=== PATIENT | male | born 1975 | race Caucasian/White ===

== ENCOUNTER → 2021-10-27 01:54 | Outpatient (CLI) | payer BC, SELFPAY ==
[2021-10-27 19:52] LABS: SARS-CoV-2 RNA PCR Positive
== END ==
DX: U07.1 COVID-19 (principal)
CPT/HCPCS: C9803; U0003; U0005

== ENCOUNTER 2022-08-03 11:29 | Outpatient (CLI) | payer BC, SELFPAY ==
--- NOTE | ~2022-08-03 | XR_ITS ---
XR humerus RT DATE: 08/03/2022 11:52 INDICATION: Swelling. Mass, lump, proximal posterior femoral area TECHNIQUE: AP and lateral views COMPARISON: None FINDINGS: No fracture or dislocation, periosteal reaction or bone destruction of the right humerus is detected. Normal alignment at the acromioclavicular, glenohumeral and elbow joints. IMPRESSION: Negative Reviewed, dictated and finalized at location A. IMPRESSION: Negative
== END 2022-08-03 11:30 | disposition home or self-care (01) ==
LOC: ANHIMG 11:36
DX: R22.31 Localized swelling, mass and lump, right upper limb (principal)
CPT/HCPCS: 73060

== ENCOUNTER 2022-09-29 07:39 | Outpatient (CLI) | payer BC, SELFPAY ==
--- NOTE | ~2022-09-29 | MR_ITS ---
EXAMINATION: MR humerus RT wo/w con DATE: 09/29/2022 09:19 INDICATION: Mass at the posterior mid right humerus with intermittent pain TECHNIQUE: Magnetic resonance imaging (MRI) of the right upper arm/humerus was performed without intr avenous contrast. A marker was placed over the mass. Sequences included axial, sagittal and coronal T1-weighted FSE and fluid sensitive FSE STIR, axial T1-weighted FS FSE and post contrast axial, sagit samantha and coronal T1-weighted FS FSE. COMPARISON: None. FINDINGS: There is a 5 mm T2 hyperintense enhancing lesion in the superficial subdermal tissues underlying the marker indicating the lesion of concern at the posterior aspect of the proximal right upper arm. Ther e appear to be tiny contrast enhanced feeding and draining vessels extending to the lesion. No other abnormal masses, fluid collections or other abnormal enhancing lesions identified. Mild supraspinatus tendinopathy with small articular sided tear along the superior facet footplate of the supraspinatus tendon which measures approximate 6 mm AP and involves approximately two thirds of the tendon thickn ess. There is mild cystic change along the greater tuberosity likely related to chronic rotator cuff disease. Bone marrow signal is otherwise normal. IMPRESSION: 1. Nonspecific 5 mm T2 hyperintense and enhancing lesion in the superficial subdermal tissues at the posterior aspect of the proximal right upper arm. Differential would include a vascular malformation/ focally dilated subcutaneous vessel or neoplasm which could be other benign or malignant. 2. Incidental mild supraspinatus tendinopathy with small severe partial thickness articular sided tea r at its superior facet insertion. Reviewed, dictated and finalized at location A. OSITY TESTER IMPRESSION: 1. Nonspecific 5 mm T2 hyperintense and enhancing lesion in the superficial sub dermal tissues at the posterior aspect of the proximal right upper arm. Differe ntial would include a vascular malformation/focally dilated subcutaneous vessel or neoplasm which could be other benign or malignant. 2. Incidental mild supraspinatus tendinopathy with small severe partial thickne ss articular sided tear at its superior facet insertion.
== END 2022-09-29 07:40 | disposition home or self-care (01) ==
DX: R22.31 Localized swelling, mass and lump, right upper limb (principal)
CPT/HCPCS: 73220; A9577

== ENCOUNTER 2022-10-06 14:29 | Outpatient (CLI) | payer BC, SELFPAY ==
--- NOTE | ~2022-10-06 | MR_ITS ---
EXAMINATION: MR knee RT wo con DATE: 10/06/2022 15:44 INDICATION: TECHNIQUE: Magnetic resonance imaging (MRI) of the knee was performed without intravenous contrast. S equences included axial PD-weighted FS FSE, coronal PD-weighted FSE and PD-weighted FS FSE, sagittal PD-weighted FSE, and sagittal T2-weighted FS FSE. COMPARISON: X-ray right knee 09/22/2022, images only. FINDINGS: Medial compartment: Radial tear of the apex of the medial aspect of the posterior horn, with a small medially directed fl ap of meniscal tissue. Undersurface fraying at the junction of the body and horn of the medial menisc us. Moderate diffuse cartilage thinning without focal defect. Mild osteophytosis. Lateral compartment: Intact meniscus. Moderate diffuse cartilage thinning. Mild osteophytosis. Patellofemoral compartment: Minimal partial-thickness fissuring along the median ridge. Intact retinacula. Ligaments and tendons: Abnormal increased signal within the ACL. Mild thickening with superficial and deep T2 hyperintense s ignal along the MCL. The PCL and LCL are intact. Longitudinally oriented abnormal signal within the p osterior aspect of the patellar tendon. Remaining flexor and extensor tendons are intact. Fluid: Small volume joint effusion. Osseous/other: No suspicious focal or diffuse marrow signal. IMPRESSION: 1. Apical tear of the posterior horn, medial meniscus, with a small displaced flap. 2. Partial ACL tear. 3. Initial MCL tear. 4. Patellar tendinopathy. Reviewed, dictated and finalized at location K. ROLLING MACHINE OPERATOR IMPRESSION: 1. Apical tear of the posterior horn, medial meniscus, with a small displaced f lap. 2. Partial ACL tear. 3. Initial MCL tear. 4. Patellar tendinopathy.
== END 2022-10-06 14:30 | disposition home or self-care (01) ==
PROVIDERS: Visit Provider Orthopaedic Surgery
DX: S83.511A Sprain of anterior cruciate ligament of right knee, initial encounter (principal); S83.411A Sprain of medial collateral ligament of right knee, initial encounter; X58.XXXA Exposure to other specified factors, initial encounter
CPT/HCPCS: 73721

== ENCOUNTER 2022-10-29 09:02 | Outpatient (CLI) | payer BC, SELFPAY ==
--- NOTE | 2022-10-29 09:10 | ECG_ITS ---
Measurements Intervals Jesse Rate: 77 P: -8 ME: 141 QRS: -17 QRSD: 106 T: -14 QT: 336 QTc: 380 Interpretive Statements SINUS RHYTHM VOLTAGE CRITERIA FOR LVH BORDERLINE R WAVE PROGRESSION, ANTERIOR LEADS INFERIOR INFARCT, AGE INDETERMINATE BASELINE ARTIFACT- I, III, AVL ABNORMAL ECG NO PREVIOUS ECG AVAILABLE FOR COMPARISON Electronically Signed On 10-29-2022 10:10:05 GARMENT STEAMER by Jose Angel Argueta D.O.
[2022-10-29 10:09] LABS: Anion Gap 4 mmol/L (8-16); Blood Urea Nitrogen 16 mg/dL (9-20); Calcium 8.6 mg/dL (8.4-10.2); Carbon Dioxide 28 mmol/L (22-30); Chloride 103 mmol/L (98-107); Estimated Glomerular Filt Rate > 60; Glucose 208 mg/dL (65-110); Potassium 4.1 mmol/L (3.4-5.0); Sodium 135 mmol/L (137-145)
== END 2022-10-29 09:03 | disposition home or self-care (01) ==
PROVIDERS: Anesthesiology; Visit Provider Orthopaedic Surgery
DX: E11.9 Type 2 diabetes mellitus without complications (principal); Z01.818 Encounter for other preprocedural examination; R94.31 Abnormal electrocardiogram [ECG] [EKG]
CPT/HCPCS: 36415; 80048; 93005

== ENCOUNTER 2022-11-02 00:49 | Day surgery (SDC) | payer BC, SELFPAY ==
[2022-10-25 10:51] VITALS: BMI 28.8
--- NOTE | 2022-10-25 10:55 | PC.NURSE ---
Report to the Outpatient Waiting Room, entrance under the green pavilion located off [facility], at time 11:30 on date 11/02/22. Planned Procedure Time: 1:30. Time changes happen often and if your time is changed the preop area will call you the afternoon before. - You and your visitor will be asked to self-screen and do not enter if you have any COVID symptoms. - Only one visitor is requested with a max of two and NO children visitors are allowed at this time. - The patient visitor may be requested to leave or wait in car when not with patient due to distancing restrictions. - A mask is optional within the hospital. Patients may have clear liquids (water, carbonated beverages, clear teas, apple juice) until 3 hours prior to surgery (10:30) with a maximum of 20 ounces. - No food from midnight until time of surgery Take the following medications with a SIP of water the morning of surgery: BUPROPION Medications to discontinue per physician: NAPROXEN Date to take last dose: 10/25/22 Please no make-up, nail south african, hairspray, perfume, deodorant, or body powder the day of surgery. No jewelry (including any body piercings) or valuables the day of surgery, leave them at home. Please take a shower or bath the night before, or the morning of, surgery with an antibacterial soap. Wear comfortable, loose fitting clothing. - Jewelry must be removed prior to entering the operating room. Rings and piercings that are not removed may be cut off. - The hospital will not accept responsibility for valuables. - Please leave all valuables, including medications, at home the day of surgery. If you are going home after surgery, a licensed car pick up driver must drive you home. - NO public transportation without another adult if you receive anesthesia. - We recommend that an adult stay with you for 24 hours following discharge. - We also recommend that you do not drive, make important decision, drink alcoholic beverages, or take any drugs that were not prescribed by your health care provider for at least 24 hours after your discharge time. Follow any additional instructions given to you from your surgeon. If you or anyone in your household have experienced Covid symptoms in the past week, please notify your surgeon or the nurse liaison at the phone number below for possible testing. Telephone instructions given to PT - ANTIONE DOSHI and asked if any additional questions and then verbalized understanding. Patient advised to call surgeon office or pre surgery nurse liaison [phone] if any additional questions.
[2022-11-02] VITALS (7 sets, daily range): BP systolic 104–144; BP diastolic 63–91; PULSE 62–75; RESP 15–20; TEMP 36.1–36.4; O2SAT 97–100
--- NOTE | 2022-11-02 08:21 | WPDANESEPPF ---
Anes - Initial Pre Proc Eval Procedure: Operation Date: 11/02/22 13:30 Proposed Procedures p Right Knee Arthroscopy, Partial Medial Meniscectomy - Otf Curtis MD Date/Time: 11/02/22 08:21 Surgeon: Otf Curtis MD Pre Op Diagnosis: right medial meniscus tear Patient Data Age: 47 Gender: M Height: 1.85 m Weight: 98.9 kg Allergies Allergy/AdvReac Type Severity Reaction Status Date / Time No Known Allergies Allergy Verified 11/02/22 11:37 Home Medications Medication Instructions Recorded Confirmed Type glimepiride 2 mg tablet 2 mg PO DAILY 08/10/19 11/02/22 History insulin glargine 100 unit/mL 15 unit subcut HS 08/10/19 11/02/22 History subcutaneous solution (Lantus U-100 Insulin) liraglutide 0.6 mg/0.1 mL (18 mg/3 1.8 mg subcut WEEKLY 08/10/19 11/02/22 History mL) subcutaneous pen injector (Victoza 3-Hitesh) lisinopril 10 mg tablet 10 mg PO DAILY 08/10/19 11/02/22 History metformin 1,000 mg tablet 1,000 mg PO BID 08/10/19 11/02/22 History atorvastatin 10 mg tablet 10 mg PO DAILY 11/09/21 11/02/22 History bupropion HCl 150 mg 24 hr tablet, 150 mg PO QAM 11/09/21 11/02/22 History extended release naproxen 500 mg tablet 500 mg PO BID #120 tabs 11/09/21 11/02/22 Rx Patient hx anesthesia problems: none Family hx anesthesia problems: none Results Review: All pre-operative results and documents have been reviewed as part of the pre-operative evaluation. [facility] Past Medical History Medical History (Updated 11/02/22 @ 08:22 by Alban Kearns MD) Anxiety Diabetes HTN (hypertension) Hypercholesterolemia JARET on CPAP Overweight (BMI 25.0-29.9) Surgical History Surgical History H/O vasectomy Family History Family History Father Diabetes mellitus Social History Social History Smoking status: Never smoker Alcohol intake: current Alcohol use details: VERY RARE Substance use: never Substance use type: does not use Lack of Transportation: No Lack of Food: Never True Current Housing: I Have Housing Concerned About Future Housing: No Difficulty Paying Gas/Electric Bills: No Difficulty Paying for Meds: No Currently Unemployed: No Education: Associate Degree Difficulty w/ Childcare or Family Care: No Living arrangements: with family Gender identity (if verbalized by the patient): Male Spiritual care concerns: No Anes - Eval Final PreProcedure Day of Procedure 11/02/22 08:21 Patient weight: overweight Heart: regular rate and rhythm Lungs: clear to auscultation and normal air movement Airway: Mallampati scale class II Neurological: alert and oriented Last oral intake: >/= 8 hours ASA classification: III Emergent: no Anesthetic plan: proceed Anesthesia type and monitoring: general LMA Results Review: All pre-operative results and documents have been reviewed as part of the pre-operative evaluation. Informed Consent: The patient's anesthetic plan and its attendant risks and benefits were discussed with the patient/family/POA. Questions were solicited and answers provided to the satisfaction of the patient/family/POA.
[2022-11-02] MEDS: ACETAMINOPHEN 500 MG TABLET 1000 MG PO (11:44)
[2022-11-02] MEDS: LACTATED RINGERS 1,000 ML 30 ML IV CONT (12:15)
[2022-11-02] MEDS: KETOROLAC 15 MG/ML VIAL (*BKC) IV PUSH (12:16)
[2022-11-02 12:21] LABS: Glucose Point of Care 108 mg/dl (65-105)
--- NOTE | 2022-11-02 13:45 | WPDHPUPDATE1 ---
History and Physical Update Update Date/Time: 11/02/22 13:45 History and Physical has been reviewed, including an updated exam of the patient. There are NO changes in the patient's condition. Risks, benefits, and alternatives have been discussed and questions answered. Patient agrees to proceed with procedure.
[2022-11-02] MEDS: ceFAZolin 2 GM/D5W 50 ML 2 GM/50 ML BAG IVPB (13:50)
[2022-11-02] MEDS: BUPIVACAINE/EPINEPHRINE 0.5% 10 ML VIAL 30 ML INFILTRATE (14:17)
[2022-11-02 15:22] LABS: Glucose Point of Care 99 mg/dl (65-105)
--- NOTE | 2022-11-02 16:32 | P.OP_ITS ---
Procedure Note - Detailed Date of Procedure 11/02/22 Pre-op Diagnosis Right knee medial meniscus tear Post-op Diagnosis Same Procedure Performed Arthroscopic partial medial meniscectomy, right knee. Surgeon Otf Curtis MD Anesthesia General Findings Large parrot-beak type tear with displaced flap from the posterior meniscus. Consistent with the MRI. Partial ACL disruption noted on the MRI not readily evident clinically. The ACL functioned normally with Ephraim's test under direct vision. Perhaps some subtle appearance of previous injury. Medial femur chondromalacia grade 1, medial tibia grade 1. Lateral femur chondromalacia grade 0, lateral tibia grade 0. Patellar grade 0, trochlea grade 0. Description of Procedure The patient was identified and the surgical site confirmed and signed in the preoperative holding area. Antibiotics were started per protocol. She was brought to the operative room and transferred to the OR table. A general anesthetic was administered. Supine position with the operative lower extremity position in the leg estrada after placement of a well padded tourniquet. The leg support was lowered and the contralateral limb was supported with a soft bolster. The knee was prepped and draped in the usual sterile fashion. A time- out was performed. The portal sites were marked and infiltrated with 0.5% Marcaine 20 mL. The limb was exsanguinated and the tourniquet inflated to 300 mL Hg. Standard inferolateral and inferomedial portals were established. Inflow was obtained with the saline pump. The camera was introduced. Diagnostic inspection of the joint was accomplished. The meniscus was debrided with the arthroscopic shaver and punches until stable. The arthroscopic instruments were removed. The tourniquet released and wounds closed with subcutaneous 4-0 Monocryl absorbable suture. Steri strips and a sterile dressing were applied. A light elastic wrap was placed. The patient was extubated and brought to the recovery room in stable condition. Estimated Blood Loss -5.0 Drains No Complications No immediate complications Condition Stable Disposition PACU [facility] Billing Surgery - Charge Forward: Surgery Billing
== END 2022-11-02 16:19 | disposition home or self-care (01) ==
PROVIDERS: Visit Provider Orthopaedic Surgery
PROC: (CPT 29870; principal; 2022-11-02 13:30)
DX: S83.241A Other tear of medial meniscus, current injury, right knee, initial encounter (principal); X50.0XXA Overexertion from strenuous movement or load, initial encounter; I10 Essential (primary) hypertension; E11.9 Type 2 diabetes mellitus without complications; E78.00 Pure hypercholesterolemia, unspecified; G47.33 Obstructive sleep apnea (adult) (pediatric); F41.9 Anxiety disorder, unspecified; Z79.84 Long term (current) use of oral hypoglycemic drugs; Z79.4 Long term (current) use of insulin
CPT/HCPCS: 29881; 82948; A9270; J0690; J1100; J1885; J2250; J2405; J2704; J3010; J7120

== ENCOUNTER 2023-12-06 20:07 | Emergency (ER) | payer BC, SELFPAY ==
--- NOTE | ~2023-12-06 | CT_ITS ---
EXAMINATION: CT abdomen pelvis wo con DATE: 12/06/2023 23:03 INDICATION: R flank pain TECHNIQUE: Computed tomography (CT) of the abdomen and pelvis was performed without intravenous contr ast. Automated exposure control and iterative reconstruction technique were employed. The dose-length product was 1028.01 mGy-cm. COMPARISON: None. FINDINGS: Lower thorax: Coronary artery calcifications. Multiple sub-6 mm pulmonary nodules. Liver: Normal. Biliary/Gallbladder: Gallbladder is normal. No bile duct dilation. Pancreas: No mass or duct dilation. Spleen: Subcentimeter cyst or hemangioma. Adrenals:No mass. Kidneys: No suspicious mass, obstructing stone, or hydronephrosis. Punctate bilateral lower pole calc ifications. GI tract: No small or large bowel dilation. Normal appendix. Diverticulosis without diverticulitis. Mesentery/Peritoneum: No ascites, mass, or free air. Retroperitoneum: No mass. Atherosclerotic abdominal aortic and/or arterial calcifications. Pelvis: Pelvic organs are within normal limits. Peritoneal loose body. Soft Tissues: Small fat-containing uncomplicated umbilical and bilateral inguinal hernias. Bones: No acute osseous finding. IMPRESSION: No acute abdominopelvic process detected. Multiple subcentimeter pulmonary nodules, which require no additional evaluation unless the patient i s at high risk, in which case consider an optional low-dose noncontrast CT of the chest in 12 months. Reviewed, dictated and finalized at location K. R MIXER IMPRESSION: No acute abdominopelvic process detected. Multiple subcentimeter pulmonary nodules, which require no additional evaluatio n unless the patient is at high risk, in which case consider an optional low-do se noncontrast CT of the chest in 12 months.
[2023-12-06 20:31] VITALS: BP 137/89; PULSE 76; RESP 20; TEMP 36.4; O2SAT 99
[2023-12-06 20:44] LABS: Appearance Urine Clear (Clear); Bilirubin Urine Negative (Negative); Blood Urine Negative (Negative); Color Urine Yellow (Yellow); Glucose Urine UA 1+ mg/dL (Negative); Ketones Urine Trace mg/dL (Negative); Leukocyte Esterase Ur Negative LEU/UL (Negative); Nitrate Urine Negative (Negative); Protein Urine Negative (Negative); Specific Grav Ur 1.027 (1.001-1.035); pH Urine 5.5 (5.0-9.0)
[2023-12-06 20:53] LABS: Add Urine Microscopic? NO
--- NOTE | 2023-12-06 22:53 | ED.GENADULT ---
HPI - General Adult General Chief complaint: Urogenital-Male Stated complaint: testicular pain, R flank pain Time Seen by Provider: 12/06/23 21:52 Source: patient Mode of arrival: ambulatory Limitations: no limitations History of Present Illness HPI narrative: This is a 48-year-old male with PMH of T2 dm, HTN, JARET who presents to the ED with chief complaint of right flank pain x1 day. Reports earlier this week he was having intermittent testicular pain but states this has largely resolved. Reports the pain is primarily in the right flank and radiates somewhat into the upper abdomen as well. Endorses nausea and 1 episode of vomiting today. Denies urinary symptoms, scrotal swelling or groin pain. Denies fevers, chills, injury or trauma. Related Data Home Medications Medication Instructions Recorded Confirmed glimepiride 2 mg tablet 2 mg PO DAILY 08/10/19 11/17/22 insulin glargine 100 unit/mL 15 unit subcut HS 08/10/19 11/17/22 subcutaneous solution (Lantus U-100 Insulin) liraglutide 0.6 mg/0.1 mL (18 mg/3 1.8 mg subcut WEEKLY 08/10/19 11/17/22 mL) subcutaneous pen injector (Victoza 3-Hitesh) lisinopril 10 mg tablet 10 mg PO DAILY 08/10/19 11/17/22 metformin 1,000 mg tablet 1,000 mg PO BID 08/10/19 11/17/22 atorvastatin 10 mg tablet 10 mg PO DAILY 11/09/21 11/17/22 bupropion HCl 150 mg 24 hr tablet, 150 mg PO QAM 11/09/21 11/17/22 extended release Allergies Allergy/AdvReac Type Severity Reaction Status Date / Time povidone-iodine AdvReac Rash Verified 12/06/23 22:53 [From Betadine] Review of Systems Review of Systems: All systems as dictated in HPI [facility] Past Medical History Medical History Anxiety Diabetes HTN (hypertension) Hypercholesterolemia JARET on CPAP Overweight (BMI 25.0-29.9) Surgical History Surgical History H/O vasectomy History of meniscectomy of right knee medial Family History Family History Father Diabetes mellitus Social History Social History Smoking status: Never smoker Alcohol intake: current Alcohol use details: VERY RARE Substance use: never Substance use type: does not use Lack of Transportation: No Lack of Food: Never True Current Housing: I Have Housing Concerned About Future Housing: No Difficulty Paying Gas/Electric Bills: No Difficulty Paying for Meds: No Currently Unemployed: No Education: Associate Degree Difficulty w/ Childcare or Family Care: No Living arrangements: with family Gender identity (if verbalized by the patient): Male Spiritual care concerns: No Exam Narrative: GENERAL: Well-appearing, well-nourished, and in no acute distress. HEAD: Normocephalic, atraumatic. EYES: PERRLA and EOMI. ENT: Nares clear, no rhinorrhea or epistaxis. Mucous membranes moist. Oropharynx without tonsillar hypertrophy exudate or other lesions. NECK: Supple. No adenopathy or masses. CHEST: No respiratory distress. Clear to auscultation. No wheezes rales or rhonchi HEART: Regular rate and rhythm. No murmur heard. Normal peripheral pulses. ABDOMEN: Negative left flank tenderness. Mild right flank tenderness. soft, nontender, nondistended, normal active bowel sounds. MSK: Normal range of motion. No edema. SKIN: Warm, dry, no rash. NEURO: Alert and oriented x3. No focal deficits. PSYCH: Normal mood and affect. Course Course Emergency Course: Re-evaluation 2329: He feeling much better with pain meds and nausea meds. Vital Signs Vital signs: Vital Signs Temperature 97.5 F L 12/06/23 20:31 Pulse Rate 76 12/06/23 20:31 Respiratory Rate 20 12/06/23 20:31 Blood Pressure 137/89 12/06/23 20:31 Pulse Oximetry 99 12/06/23 20:31 Temperature 97.5 F L 12/06/23 2
[2023-12-06 22:54] VITALS: BP 128/84; PULSE 86; RESP 15; O2SAT 97
--- NOTE | 2023-12-06 22:59 | PC.NURSE ---
Pt to CT at this time.
[2023-12-06 23:03] LABS: Basophils Percent Auto 0.5 % (0.2-1.2); Eosinophils Absolute Auto 0.1 K/mm3 (0-0.3); Eosinophils Percent Auto 1.3 % (0-4.4); Hematocrit 46.7 % (42.0-52.0); Hemoglobin 15.7 g/dL (14.0-18.0); Immature Granulocyte Absolute 0.02 K/mm3 (0.00-0.031); Immature Granulocyte Percent A 0.3 % (0-0.5); Lymphocytes Absolute Auto 2.75 K/mm3 (0.9-3.2); Lymphocytes Percent Auto 36.5 % (18.3-44.2); Mean Corpuscular HGB Conc 33.6 g/dl (32-36); Mean Corpuscular Hemoglobin 29.9 pg (26-34); Mean Platelet Volume 9.7 fl (7.4-10.4); Monocytes Absolute Auto 0.8 K/mm3 (0.1-0.6); Monocytes Percent Auto 10.1 % (2.6-8.5); Neutrophils Absolute Auto 3.9 K/mm3 (1.3-6.7); Neutrophils Percent Auto 51.3 % (45.5-73.1); Platelet Count Result 248 k/mm3 (150-375); Red Blood Count 5.25 M/mm3 (4.6-6.20); Red Cell Distribution Width 13.1 % (11.5-14.5); White Blood Count 7.5 K/mm3 (4.5-10.0)
[2023-12-06 23:13] LABS: Alanine Aminotransferase 47 U/L (6-50); Albumin Level 4.6 g/dL (3.5-5.1); Alkaline Phosphatase 66 U/L (38-126); Anion Gap 6 mmol/L (8-16); Aspartate Amino Transferase 31 U/L (17-59); Bilirubin,Total 0.8 mg/dL (0.2-1.3); Blood Urea Nitrogen 25 mg/dL (9-20); Carbon Dioxide 27 mmol/L (22-30); Chloride 105 mmol/L (98-107); Estimated CRCL calculation 98 ml/min; Estimated Glomerular Filt Rate > 60; Glucose 152 mg/dL (65-110); Lipase 948 U/L (23-300); Potassium 3.9 mmol/L (3.4-5.0); Sodium 138 mmol/L (137-145)
[2023-12-06] MEDS: ONDANSETRON INJ 4 MG/2 ML VIAL IV PUSH (23:13)
[2023-12-06] MEDS: HYDROmorphone HCL INJ (*CRX) 1 MG/ML SYR 0.5 MG IV PUSH (23:14)
[2023-12-06] MEDS: SODIUM CHLORIDE 0.9% IV 1,000 ML 999 ML IV CONT (23:18)
--- NOTE | 2023-12-07 00:07 | PC.NURSE ---
Pt ready for dc. Awaiting fluids to infuse before discharge. Pt resting comfortably in bed rn.
[2023-12-07 00:51] VITALS: BP 124/81; PULSE 69; RESP 17; O2SAT 95
== END 2023-12-07 00:54 | disposition home or self-care (01) ==
PROVIDERS: Emergency Medicine; Emergency Provider Physician Assistant
DX: K85.90 Acute pancreatitis without necrosis or infection, unspecified (principal); E11.9 Type 2 diabetes mellitus without complications; I10 Essential (primary) hypertension; Z79.4 Long term (current) use of insulin
CPT/HCPCS: 36415; 74176; 80053; 81003; 83690; 85025; 96361; 96374; 96375; 99284; J1170; J2405; J7030

== ENCOUNTER 2023-12-26 08:36 | Outpatient (CLI) | payer BC, SELFPAY ==
--- NOTE | ~2023-12-26 | US_ITS ---
Abdominal Sonogram: Real-time sonographic imaging of the abdomen was performed. Clinical History: Abdominal pain Findings: The liver appears normal with no evidence of mass lesion or bile duct dilatation. Main por samantha vein demonstrates normal direction of flow. The spleen is normal in size without evidence of foca l lesion. The gallbladder is well distended, and appears normal with no evidence of gallstone or wal l thickening. The common bile duct measures 4 mm. The pancreas is obscured by bowel gas shadowing. The right kidney measures 12.0 cm in length and the left kidney measures 12.6 cm. There is no hydron ephrosis or renal calculus. Visualized aorta and IVC are unremarkable. Impression: No significant abnormality seen. Reviewed, dictated and finalized at [facility]. Impression: No significant abnormality seen.
== END 2023-12-26 08:37 ==
LOC: GOSHIMG 08:38
DX: R10.13 Epigastric pain (principal); Z87.19 Personal history of other diseases of the digestive system
CPT/HCPCS: 76700

== ENCOUNTER 2024-02-18 06:54 | Emergency (ER) | payer BC, SELFPAY ==
[2024-02-18 07:00] VITALS: BP 153/91; PULSE 61; RESP 18; TEMP 36.6; O2SAT 99
--- NOTE | 2024-02-18 07:20 | ED.EYEPROB ---
HPI - Eye Problem General Chief complaint: Eye Problems Stated complaint: hit in eye with wood Time Seen by Provider: 02/18/24 07:03 Source: patient Mode of arrival: ambulatory Limitations: no limitations History of Present Illness HPI Narrative: 48 year old with a history of hypertension, diabetes, hyperlipidemia here with complaints of left eye pain and irritation. Patient states that he was working with wood and a piece of wood lung into his left eye. Woke up this morning with irritation and pain. MD chief complaint: eye pain and eye injury Onset (ago): day(s) (1) Duration: constant Location: left eye Eye Symptoms: foreign body sensation Place: home Mechanism: direct trauma Severity: moderate If Pain, Quality: sharp Related Data Home Medications Medication Instructions Recorded Confirmed glimepiride 2 mg tablet 2 mg PO DAILY 08/10/19 11/17/22 insulin glargine 100 unit/mL 15 unit subcut HS 08/10/19 11/17/22 subcutaneous solution (Lantus U-100 Insulin) liraglutide 0.6 mg/0.1 mL (18 mg/3 1.8 mg subcut WEEKLY 08/10/19 11/17/22 mL) subcutaneous pen injector (Victoza 3-Hitesh) lisinopril 10 mg tablet 10 mg PO DAILY 08/10/19 11/17/22 metformin 1,000 mg tablet 1,000 mg PO BID 08/10/19 11/17/22 atorvastatin 10 mg tablet 10 mg PO DAILY 11/09/21 11/17/22 bupropion HCl 150 mg 24 hr tablet, 150 mg PO QAM 11/09/21 11/17/22 extended release Allergies Allergy/AdvReac Type Severity Reaction Status Date / Time bee venom protein (honey bee) Allergy Unknown Verified 02/18/24 07:04 pioglitazone [From Actos] AdvReac Hypertensio Verified 02/18/24 07:04 n povidone-iodine AdvReac Rash Verified 12/06/23 22:53 [From Betadine] Review of Systems Review of Systems: All systems reviewed & are unremarkable except as noted in HPI and below Constitutional: Constitutional: Reports no additional constitutional complaints Eyes: Eyes: Reports as per HPI ENT: Reports system reviewed and no additional complaints, except as documented Cardiovascular: Cardiovascular: Reports no additional cardiovascular complaints Respiratory: Respiratory: Reports no additional respiratory complaints Gastrointestinal: Gastrointestinal: Reports no additional gastrointestinal complaints Musculoskeletal: Musculoskeletal: Reports no additional musculoskeletal complaints Integumentary/Breasts: Skin/Breast: Reports system reviewed and no additional complaints, except as docu Neurologic: Reports system reviewed and no additional complaints, except as documented PMFSH Past Medical History Medical History Anxiety Diabetes HTN (hypertension) Hypercholesterolemia JARET on CPAP Overweight (BMI 25.0-29.9) Surgical History Surgical History H/O vasectomy History of meniscectomy of right knee medial Family History Family History Father Diabetes mellitus Social History Social History Smoking status: Never smoker Alcohol intake: current Alcohol use details: VERY RARE Substance use: never Substance use type: does not use Lack of Transportation: No Lack of Food: Never True Current Housing: I Have Housing Concerned About Future Housing: No Difficulty Paying Gas/Electric Bills: No Difficulty Paying for Meds: No Currently Unemployed: No Education: Associate Degree Difficulty w/ Childcare or Family Care: No Living arrangements: with family Gender identity (if verbalized by the patient): Male Spiritual care concerns: No Exam Narrative: GENERAL: Well-appearing, well-nourished, and in no acute distress. HEAD: Normocephalic, atraumatic. EYES: PERRLA and EOMI. Increased fluorescein uptake between 3 O ' clock . and 6 o'clock position and in the mid center ENT: Nares clear, no rhinorrhea
== END 2024-02-18 07:38 | disposition home or self-care (01) ==
LOC: ANHED 07:28
PROVIDERS: Emergency Provider Family Medicine
DX: S05.02XA Injury of conjunctiva and corneal abrasion without foreign body, left eye, initial encounter (principal); I10 Essential (primary) hypertension; E11.9 Type 2 diabetes mellitus without complications; E78.00 Pure hypercholesterolemia, unspecified; E66.3 Overweight; Z68.34 Body mass index [BMI] 34.0-34.9, adult; G47.33 Obstructive sleep apnea (adult) (pediatric); F41.9 Anxiety disorder, unspecified; Z79.4 Long term (current) use of insulin; Z79.84 Long term (current) use of oral hypoglycemic drugs; W20.8XXA Other cause of strike by thrown, projected or falling object, initial encounter
CPT/HCPCS: 99283; A9270

== ENCOUNTER 2025-06-25 13:29 | Emergency (ER) | payer OTHER, SELFPAY ==
--- NOTE | ~2025-06-25 | CT_ITS ---
EXAMINATION: CT abdomen pelvis wo con DATE: 06/25/2025 15:28 INDICATION: Abdominal pain. Ureteral pain. TECHNIQUE: Computed tomography (CT) of the abdomen and pelvis was performed without intravenous contrast. Automated exposure control and iterative reconstruction technique were employed. The dose-length product was 926.16 mGy-cm. COMPARISON: CT abdomen and pelvis 12/06/2023 FINDINGS: The visualized portions of the lung bases are clear without pneumonia or pleural effusion. The heart size is normal. There are coronary artery calcifications. No pericardial effusion. The liver, gallbladder, spleen, pancreas, adrenal glands, and right kidney are normal. There is a 1 mm stone in left kidney. There is a 5 mm stone at right ureterovesicular junction. The prostate is mildly enlarged. There is diverticulosis of the colon without evidence of diverticulitis. There are no dilated loops of bowel. The appendix is normal. There are no pathologically enlarged lymph nodes. There is no free intraperitoneal fluid. There is severe thoracic and lumbar spondylosis. IMPRESSION: 1. 5 mm stone at right ureterovesicular junction. No hydronephrosis. 2. 1 mm nonobstructing left kidney stone. Reviewed, dictated and finalized at location E.
[2025-06-25 13:47] VITALS: BP 130/84; PULSE 72; RESP 16; TEMP 36.6; O2SAT 100
[2025-06-25 14:33] LABS: Add Urine Microscopic? NO; Appearance Urine Clear (Clear); Glucose Urine UA Negative (Negative); Leukocyte Esterase Ur Negative LEU/UL (Negative); Nitrate Urine Negative (Negative); Specific Grav Ur 1.032 (1.001-1.035)
[2025-06-25 14:42] LABS: Alanine Aminotransferase 36 U/L (6-50); Albumin Level 4.3 g/dL (3.5-5.1); Alkaline Phosphatase 58 U/L (38-126); Aspartate Amino Transferase 34 U/L (17-59); Bilirubin,Total 0.7 mg/dL (0.2-1.3); Blood Urea Nitrogen 31 mg/dL (9-20); Calcium 9.0 mg/dL (8.4-10.2); Carbon Dioxide 21 mmol/L (22-30); Estimated CRCL calculation 84 ml/min; Estimated Glomerular Filt Rate > 60; Glucose 136 mg/dL (65-110); Lipase 817 U/L (23-300); Potassium 4.4 mmol/L (3.4-5.0); Sodium 134 mmol/L (137-145); Total Protein 7.2 g/dL (6.3-8.2)
[2025-06-25 14:50] LABS: Hematocrit 48.1 % (42.0-52.0); Hemoglobin 16.0 g/dL (14.0-18.0); Immature Granulocyte Percent A 0.4 % (0-0.5); Lymphocytes Absolute Auto 1.84 K/mm3 (0.9-3.2); Mean Corpuscular HGB Conc 33.3 g/dl (32-36); Mean Corpuscular Hemoglobin 30.4 pg (26-34); Mean Corpuscular Volume 91.4 fl (80-100); Nucleated Red Blood Cells Absolute Auto 0.000 K/mm3 (0.0-0.012); Nucleated Red Blood Cells Perc 0.0 % (0.0-0.2); Platelet Count Result 248 k/mm3 (150-375); Red Blood Count 5.26 M/mm3 (4.6-6.20); White Blood Count 8.0 K/mm3 (4.5-10.0)
--- NOTE | 2025-06-25 14:59 | PC.NURSE ---
Pt asking for pain medications. EDP Tamara made aware.
--- OUTSIDE RECORDS SUMMARY | 2025-06-25 15:05 | XMS_ITS | Encounter Summary ---
Author Organization [facility] Healthcare Address [address] [place] [address] Care Team Providers Care Mast Maker Name Role Phone Dayne Acosta MD Primary Care Provider + Reason for Visit * Reason Onset Date Comments Abdominal Pain 06/25/2025 penis symptoms 06/25/2025 Encounter Details Date Type Department Care Team (Late st Contact Info) Description 06/25/2025 Nurse Triage [facility] Medical Group Primary Care at [address] [place] [address] Dayne Acosta MD [address] [place] [address] [address] [place] [address] Social History Tobacco Use Types Packs/Day Years Used Date Smoking Tobacco: Never Smokeless Tobacco: Never AUDIT-C Answer Date Recorded Q1: How often do you have a drink containing alc ohol? Monthly or less 01/03/2025 Q2: How many drinks containi ng alcohol do you have on a typical day when you are drinking? 1 or 2 01/03/2025 Q3: How often do you have si x or more drinks on one occasion? Never 01/03/2025 PHQ-2 Answer Date Recorded PHQ-2 Total Score (If total score is 3 or more points, staff should administer the PHQ-9) 0 02/20/2025 PHQ-9 Answer Date Recorded PHQ-9 Total Score 1 01/03/2025 Personal Safety Answer Date Recorded Have you ever been in or are you currently in a harmful physical or emotional relationship or is someone making you feel afraid or unsafe? 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 Developed sharp severe pain in this penis, down to the tip. Like a lightening bolt sharp pains are a 9/10. Pain lessens when he is up walking but is severe and sharp when lying down. Pt is noting some tenderness on the underside of his penis today. No dysuria, hematuria, swelling, scrotal pain, fever or difficulty urinating. This morning pain spread to across his low abdomen. Today has a low constantache across his low abdomen 1-2/10. Last BM this morning, no bleeding. Still having intermittent sharp pains in his penis, but not as severe today as it is when he is lying down. Did take some pain me dication this morning about 0600 and is now beginning to wear off. Notes some tightness in his low back, mostly on the right side. Provider contacted via secure chat for ED disposition consult. Recommendation from provider:Proceed to ED There is no availability in the office. Dr Acosta advised evaluation in the ED due to severity of pain and the involvement of penis/abdomen. He needs a UA, labsand possible imaging to exclude potential causes. Discussed recommendation with the pt who states he will go to the ED. Pt states he did void while waiting for a call back and pain was severe in hispenis again but has now lessened to a dull ache. Advised pt to call back if symptoms worsen or with any other concerns/questions. Pt verbalized understanding. Disposition Go to ED/UCC Now (or to Office With PCP Approval), See Today in Office Reason for Disposition Patient wants to be seen MILD TO MODERATE constant pain lasting > 2 hours Protocols Used Abdominal Pain - Vsvh-Pkeho-CR Penis and Scrotum [id number] * Telephone Encounter - Mary Jarvis RN - 06/25/2025 12:34 PM CDT Regarding: Severe pain in lower abdomen ----- Message from Deven Vasquez sent at 06/25/2025 12:33 PM CDT ----- Symptom Based Call Chief Complaint(s): Severe pain in lower abdomen Duration: Started yesterday What type of symptom(s) is the patient experiencing? Red Flag. Is the patient concerned they are experiencing a medical emergency requiring an ambulance? No Additional Comments: Patient stated the pain is not constant but feels light a lightening bolt whenit hits. Patient stated when it hits, it immobilizes him. Does message need to be routed? Yes-Action Needed documented in this encounter Plan of Treatment Not on file documented as of this encounter Visit Diagnoses Not on filedocumented in this encounter Care Teams Mast Maker Relationship Specialty Start Date End Date Dayne Acosta MD [address] [address] PCP - General Family Medicine 02/20/25 documented as of this encounter
--- OUTSIDE RECORDS SUMMARY | 2025-06-25 15:05 | XMS_ITS | Clinical Summary ---
Author Organization [facility] Address [address] [place] [id number] Care Team Providers Care Fat Purification Worker Name Role Phone Dayne Acosta MD Primary Care Provider + Allergies Active Allergy Reactions Criticality Noted Date Comments Povidone-Iodine Hives Medium 12/20/2022 Pioglitazone Other (See comments) 01/03/2025 Venom-Honey Bee Rash Medium 01/03/2025 Medications cholecalciferol (VITAMIN D-3) 2000 unit capsuleIndicati ons:Vitamin D Deficiency Take 1 capsule (2,000 Units total) by mouth daily before breakfast Active multivitamin,tx -minerals capsuleIndicati ons:Vitamin Deficiency Prevention Take 1 tablet by mouth daily before breakfast Active fluticasone propionate (FLONASE) 50 mcg/actuation nasal spray See Instructions, # 48 gm, INSTILL 1 SPRAY IN EACH NOSTRIL EVERY DAY, [id number] 0 Active blood-glucose sensor device Cameron 2-use to check throughout the day 5 each 3 5 Active LANTUS 100 unit/mL (3 mL) pen for injection Use 20 units daily 45 mL 3 5 Active metFORMIN XR (GLUCOPHAGE XR) 500 mg 24 hr tabletIndicatio ns:type 2 diabetes mellitus Take 2 tablets (1,000 mg total) by mouth 2 (two) times a day 360 tablet 3 5 04/09/20 26 Active glimepiride (AMARYL) 4 mg tabletIndicatio ns:type 2 diabetes mellitus Take 1 tablet (4 mg total) by mouth 2 (two) times a day 180 tablet 3 5 Active atorvastatin (LIPITOR) 10 mg tabletIndicatio ns:hyperlipidem ia Take 1 tablet (10 mg total) by mouth nightly 90 tablet 3 5 Active buPROPion XL (WELLBUTRIN XL) 150 mg 24 hr tabletIndicatio ns:Anxiety with Depression Take 1 tablet (150 mg total) by mouth daily before breakfast 90 tablet 3 5 Active naproxen (NAPROSYN) 500 mg tablet Take 1 tablet (500 mg total) by mouth 2 (two) times a day with meals 180 tablet 3 5 04/09/20 26 Active lisinopriL (PRINIVIL,ZESTR IL) 10 mg tabletIndicatio ns:hypertension Take 1 tablet (10 mg total) by mouth daily before breakfast 90 tablet 3 5 Active tirzepatide (Mounjaro) 7.5 mg/0.5 mL pen injector injectionIndica tions:Type 2 diabetes mellitus without complication, with long-term current use of insulin (HCC) Inject 0.5 mL (7.5 mg total) under the skin every 7 days 6 mL 5 Active Active Problems Problem Noted Date Diagnosed Date Hyperlipidemia associated with type 2 diabetes m ellitus 02/20/2025 Type 2 diabetes mellitus wit hout complication, with long-term current use of insulin 01/03/2025 Assessment & Plan (01/03/2025 9:50 AM CDT): Orders: Hemoglobin A1c; Future Albumin Creatinine Ratio, Urine; Future Vitamin B12; Future Ambulatory referral to Endocrinology; Future Encounter for screening colonoscopy 11/04/2023 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 Mass of arm, right 10/21/2022 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 10/21/2022 Encounters Date Type Department Care Team Description 06/25/2025 Nurse Triage [facility] Medical Group Primary Care at [address] [address] Dayne Acosta MD from Last 3 Months Immunizations Immunization Administration Dates Next Due Influenza, Quadrivalent, Spl it, Preservative Free, Intramuscular 06/24/2023,06/16/2022,08/24/2017,07/16 Influenza, Trivalent, Preser vative Free, Intramuscular 07/10/2024 Tdap 08/10/2019,05/25/2013 Surgical History Surgery Date Site/Laterality Comments MENISCUS SURGERY 10/10/2022 - 11/09/2022 Right CATARACT EXTRACTION Left ARM SURGERY 10/10/2022 - 10/09/2023 Pt had small glomus tumor removed COLONOSCOPY 08/31/2024 1st Medical History Medical History Date Comments Anxiety Diabetes mellitus (HCC) Hypertension Hypercholesteremia Family History Medical History Relation Name Comments Diabetes Father Heart disease Father Hypertension Father Hypertension Mother Relation Name Status Comments Father Mother Social History Tobacco Use Types Packs/Day Years [...] on file 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 Gender Identity Not on file Sexual Orientation Not on file Obstetrics History Last Filed Vital Signs Vital Sign Reading Time Taken Comments Blood Pressure 132/78 02/20/2025 9:06 AM CDT Pulse 73 02/20/2025 9:06 AM CDT Temperature 36.2 C (97.1 F) 01/03/2025 9:05 AM CDT Respiratory Rate 14 01/03/2025 9:05 AM CDT Oxygen Saturation 98% 02/20/2025 9:06 AM CDT Inhaled Oxygen Concentration - - Weight 102.5 kg (226 lb) 02/20/2025 9:06 AM CDT Height 185.4 cm (6' 1) 02/20/2025 9:06 AM CDT Body Mass Index 29.82 02/20/2025 9:06 AM CDT Plan of Treatment Health Maintenance Due Date Last Done Comments Foot Exam 1975 Hepatitis B Screening 1992 Regular Well Visit/Exam 18-64 1992 Pneumococcal vaccine <65 (1 of 2 - PCV) 1993 Zoster Vaccine (1 of 2) 2024 Influenza Vaccine (#1) 2025 , 06/24/2023, 06/16/2022, Additional history exists Hemoglobin A1C 08/03/2025 02/01/2025 Albumin Creatinine Ratio, Urine 02/01/2026 Lipid Panel 02/01/2026 02/01/2025 eGFR 02/01/2026 02/01/2025 Dilated Eye Exam 02/04/2026 02/04/2025 Depression Screening 02/20/2026 02/20/2025, 01/03/2025, 01/03/2025 Prostate Cancer Screening-PSA 02/01/2027 02/01/2025 DTaP/Tdap/Td Vaccine (3 - Td or Tdap) 08/10/2029 08/10/2019, 05/25/2013 Colon Cancer Screening-Colonoscopy 08/31/20342023 Covid-19 Vaccine Completed 07/10/2024, , 03/01/2022, Additional history exists Hepatitis C Screening Completed 02/01/2025 Procedures Procedure Name Priority Date/Time Associated Diagnosis Comments HM DIABETES EYE EXAM Routine 02/04/2025 10:36 AM CDT HEPATITIS C ANTIBODY Routine 02/01/2025 7:14 AM CDT Need for hepatitis C screening test COMPREHENSIVE METABOLIC PANEL Routine 02/01/2025 7:14 AM CDT Screening for diabetes mellitus HEMOGLOBIN A1C Routine 02/01/2025 7:14 AM CDT Type 2 diabetes mellitus without complication, with long-term current use of insulin (HCC) LIPID PANEL Routine 02/01/2025 7:14 AM CDT Screening, lipid ALBUMIN CREATININE RATIO, URINE Routine 02/01/2025 7:14 AM CDT Type 2 diabetes mellitus without complication, with long-term current use of insulin (HCC) PSA SCREEN Routine 02/01/2025 7:14 AM CDT Screening for prostate cancer COLONOSCOPY 08/31/2024 8:48 AM COMPUTER DESIGNER from Last 3 Months or Most Recently Relevant to Health Maintenance Results * (ABNORMAL) DIABETES EYE EXAM (02/04/2025 10:36 AM CDT) SCRIBED DIABETIC DILATED EYE EXAM Abnormal Historical Provider HEALTH MAINTENANCE Final Result * PSA screen (02/01/2025 7:14 AM CDT) PSA 0.86 < OR = 4.00 ng/mL [facility] Comment: The total PSA value from this assay system is standardized against the WHO standard. The test result will be approximately 20% lower when compared to the equimolar-standardized total PSA (Flaco Shaylee). Comparison of serial PSA results should be interpreted with this fact in mind. This test was performed using the Siemens chemiluminescent method. Values obtained from different assay methods cannot be used interchangeably. PSA levels, regardless of value, should not be interpreted as absolute evidence of the presence or absence of disease. Blood 02/01/2025 7:14 AM CDT 02/01/2025 7:15 AM CDT Bridgette Leonard MD LAB BLOOD ORDERABLE S Final Result [facility] [address] [place] [address] * Hepatitis C antibody Blood (02/01/2025 7:14 AM CDT) Hep C Ab NON-REACTI VE NON-REACT ERIN [facility] Comment: HCV antibody was non-reactive. There is no laboratory evidence of HCV infection. In most cases, no further action is required. However, if recent HCV exposure is suspected, a test for HCV RNA (test code 43813) is suggested. For additional information please refer to http://education.[employer]/faq/ZOT34t9 (This link is being provided for informational/ educational purposes only.) Blood 02/01/2025 7:14 AM CDT 02/01/2025 7:15 AM CDT Bridgette Leonard MD LAB MICROBIOLOGY - GENERAL ORDERABLES Final Result Performing Organization Address [facility] de Phone Number [employer] [address] [place] [address] * Albumin Creatinine Ratio, Urine (02/01/2025 7:14 AM CDT) Creatinine, ur 180 20 - 320 mg/dL [facility] Microalbumin, ur 0.7 See Note: mg/dL [facility] Comment: Reference Range: Reference Range Not established Microalbumin/creat ratio 4 <30 mg/g creat [facility] Comment: The ADA defines abnormalities in albumin excretion as follows: Albuminuria Category Result (mg/g creatinine) Normal to Mildly increased <30 Moderately increased 30-299 Severely increased > OR = 300 The ADA recommends that at least two of three specimens collected within a 3-6 month period be abnormal before considering a patient to be within a diagnostic category. Urine 02/01/2025 7:14 AM CDT 02/01/2025 7:15 AM CDT us Bridgette Leonard MD LAB URINE ORDERABLE S Final Result Performing Organization Address [facility] de Phone Number [employer] [address] [place] [address] * (ABNORMAL) Hemoglobin A1c (02/01/2025 7:14 AM CDT) Hgb A1C 6.3(H) <5.7 % of total Hgb [facility] Comment: For someone without known diabetes, a hemoglobin A1c value between 5.7% and 6.4% is consistent with prediabetes and should be confirmed with a follow-up test. For someone with known diabetes, a value <7% indicates that their diabetes is well controlled. A1c targets should be individualized based on duration of diabetes, age, comorbid conditions, and other considerations. This assay result is consistent with an increased risk of diabetes. Currently, no consensus exists regarding use of hemoglobin A1c for diagnosis of diabetes for children. Blood 02/01/2025 7:14 AM CDT 02/01/2025 7:15 AM CDT us Bridgette Leonard MD LAB BLOOD ORDERABLE S Final Result [facility] [address] [place] [address] * Lipid panel (02/01/2025 7:14 AM CDT) Cholesterol 154 <200 mg/dL [facility] HDL 49 > OR = 40 mg/dL [facility] Triglycerides 91 <150 mg/dL [facility] LDL 86 mg/dL (calc) [facility] Comment: Reference range: <100 Desirable range <100 mg/dL for primary prevention; <70 mg/dL for patients with CHD or diabetic patients with > or = 2 CHD risk factors. LDL-C is now calculated using the Tariq-Ajay calculation, which is a validated novel method providing better accuracy than the Friedewald equation in the estimation of LDL-C. Tariq WEBB et al. JEWEL. 2013;310(19): 2584-4023 (http://education.[employer]/faq/HPT995) Chol/HDL ratio 3.1 <5.0 (calc) [facility] Non-HDL, (LDL+VLDL) 105 <130 mg/dL (calc) [facility] Comment: For patients with diabetes plus 1 major ASCVD risk factor, treating to a non-HDL-C goal of <100 mg/dL (LDL-C of <70 mg/dL) is considered a therapeutic option. Blood 02/01/2025 7:14 AM CDT 02/01/2025 7:15 AM CDT us Bridgette Leonard MD LAB BLOOD ORDERABLE S Final Result [facility] [address] [facility] [place] [address] * (ABNORMAL) Comprehensive metabolic panel (02/01/2025 7:14 AM CDT) Glucose 159(H) 65 - 99 mg/dL [facility] Comment: Fasting reference interval For someone without known diabetes, a glucose value >125 mg/dL indicates that they may have diabetes and this should be confirmed with a follow-up test. BUN 23 7 - 25 mg/dL [facility] Creatinine 0.92 0.70 - 1.30 mg/dL [facility] eGFR 101 > OR = 60 mL/min/1.7 3m2 [facility] BUN/creat ratio SEE NOTE: 6 - 22 (calc) [facility] Comment: Not Reported: BUN and Creatinine are within reference range. Sodium 142 135 - 146 mmol/L [facility] Potassium, pl 4.0 3.5 - 5.3 mmol/L [facility] Chloride 107 98 - 110 mmol/L [facility] CO2 29 20 - 32 mmol/L [facility] Calcium 9.2 8.6 - 10.3 mg/dL [facility] Protein, sr 6.4 6.1 - 8.1 g/dL [facility] Albumin 4.3 3.6 - 5.1 g/dL [facility] GLOBULIN 2.1 1.9 - 3.7 g/dL (calc) [facility] Alb/glob ratio 2.0 1.0 - 2.5 (calc) [facility] Bilirubin, total 0.5 0.2 - 1.2 mg/dL [facility] Alk phos 52 35 - 144 U/L [facility] AST 21 10 - 35 U/L [facility] ALT (SGPT) 29 9 - 46 U/L [facility] Blood 02/01/2025 7:14 AM CDT 02/01/2025 7:15 AM CDT us Bridgette Leonard MD LAB BLOOD ORDERABLE S Final Result [facility] [address] [address] * Colonoscopy (08/31/2024 8:48 AM COMPUTER DESIGNER) Anatomical Region Laterality Modality Other Narrative Procedure Note Duane Gaona MD - 08/31/2024 8:48 AM CST [facility] Patient Name: Juan Guillen Procedure Date: 08/31/2024 8:48 AM Date of : 1975 Admit Type: Outpatient Age: 49 Gender: Male Attending MD: Duane Gaona M.D. Room: [facility] 1 Note Status: Finalized Patient Profile: This is a 49 year old male. No family history ofcolon cancer. No specific GI complaints. Procedure: Colonoscopy Indications: Screening for colorectal malignant neoplasm, Thisis the patient's first colonoscopy Referring MD: Krystin Patel M.D. Providers: Duane Gaona M.D. Impression: - One 10 mm polyp in the descending colon, removed with a cold snare. Resected and retrieved. Recommendation: - Await pathology results. - Repeat colonoscopy in 4 years for surveillance. Medicines: Monitored Anesthesia Care Complications: No immediate complications. Estimated Blood Loss: Estimated blood loss: none. Procedure: Pre-Anesthesia Assessment: - Prior to the procedure, a History and Physicalwas performed, and patient medications and allergieswere reviewed. The patient's tolerance of previous anesthesia was also reviewed. The risks andbenefits of the procedure and the sedation options and risks were discussed with the patient. All questions were answered, and informed consent was obtained. Prior Anticoagulants: The patient has taken noanticoagulant or antiplatelet agents. ASA Grade Assessment: Per anesthesia note and evaluation. After reviewing the risks and benefits, the patient was deemed in satisfactory condition to undergo the procedure. The benefits, risks and alternatives of theprocedure and sedation were discussed and informed consentwas obtained. All questions were answered. Please referto the signed informed consent document in the medical record. The bowel preparation used was Miralax and bisacodyl tablets via split dose instruction. The scope was passed under direct vision. The Pediatric Colonoscope PCF-H190L [id number] was introducedthrough the anus and advanced to the the cecum, identifiedby appendiceal orifice and ileocecal valve. The colonoscopy was performed without difficulty. The patient tolerated the procedure well. The qualityof the bowel preparation was good. Bowel prep was administered using a split dose. Findings: The perianal and digital rectal examinations were normal. The cecum appeared normal. The rectum, sigmoid colon, transverse colon and ascending colonappeared normal. Retroflexion of the rectum was unremarkable. A 10 mm polyp was found in the descending colon. The polyp was semi-sessile. The polyp was removed with a cold snare. Resection and retrieval were complete. Electronically signed by Duane Gaona M.D. Duane Gaona M.D. 08/31/2024 10:36:55 AM Number of Addenda: 0 Note Initiated On: 08/31/2024 8:48 AM Procedure Code(s): --- Professional --- 99548, Colonoscopy, flexible; with removal of tumor(s), polyp(s), or other lesion(s) by snare technique Diagnosis Code(s): --- Professional --- Z12.11, Encounter for screening for malignant neoplasm of colon D12.4, Benign neoplasm of descending colon CPT copyright 2020 [employer]. All rights reserved. The codes documented in this report are preliminary and upon plumbing and heating mechanic reviewmay be revised to meet current compliance requirements. Recognized by the [employer] for promoting quality in endoscopy Duane Gaona MD ENDOSCOPY PROCEDURES Final Result from Last 3 Months or Most Recently Relevant to Health Maintenance Insurance [employer] [facility] CHOICE PLUS Advance Directives For more information, please contact: [phone] * Full Code (Latest Code Status on File) Date Activated Date Inactivated Comments 08/31/2024 8:19 AM 08/31/2024 3:04 PM * Full Code Date Activated Date Inactivated Comments 08/31/2024 8:19 AM 08/31/2024 8:19 AM Care Teams Fat Purification Worker Relationship Specialty Start Date End Date Dayne Acosta MD [address] [facility] [address] [address] PCP - General Family Medicine 02/20/25
--- NOTE | 2025-06-25 15:06 | ED.ABDPAIN ---
HPI - Abdominal Pain General Chief Complaint: Abdominal Pain Stated Complaint: abd pain Time Seen by Provider: 06/25/25 14:02 Source: patient Mode of arrival: ambulatory Limitations: no limitations History of Present Illness HPI narrative: Patient is a 50-year-old male who presents the ED with report of penile pain. Patient reports he developed pain in his penis since last night after urinating. Has had persistent pain after urination since then. States current episode of pain has been ongoing for around 45 minutes since urinating. He did have some discomfort throughout his lower abdomen earlier today, but states this has resolved. Denies other significant abdominal/back pain currently. Denies hematuria. Denies previous history of kidney stones. Denies testicular pain or swelling, nausea, vomiting, fevers. Denies concern for STDs. Related Data Home Medications ?Medication ?Instructions ?Recorded ?Confirmed ?Last Taken ?Type glimepiride 2 mg tablet 2 mg PO DAILY 08/10/19 11/17/22 11/01/22 History insulin glargine 100 unit/mL 15 unit subcut HS 08/10/19 11/17/22 11/01/22 History subcutaneous solution (Lantus U-100 Insulin) liraglutide 0.6 mg/0.1 mL (18 mg/3 1.8 mg subcut WEEKLY 08/10/19 11/17/22 10/30/22 History mL) subcutaneous pen injector (Victoza 3-Hitesh) lisinopril 10 mg tablet 10 mg PO DAILY 08/10/19 11/17/22 11/01/22 History metformin 1,000 mg tablet 1,000 mg PO BID 08/10/19 11/17/22 11/01/22 History atorvastatin 10 mg tablet 10 mg PO DAILY 11/09/21 11/17/22 11/01/22 History bupropion HCl 150 mg 24 hr tablet, 150 mg PO QAM 11/09/21 11/17/22 11/02/22 06:15 History extended release Allergies Allergy/AdvReac Type Severity Reaction Status Date / Time bee venom protein (honey bee) Allergy Unknown Verified 02/18/24 07:04 pioglitazone (From Actos) AdvReac Hypertensio Verified 02/18/24 07:04 n povidone-iodine (From AdvReac Rash Verified 12/06/23 22:53 Betadine) Review of Systems Review of Systems: All systems reviewed & are unremarkable except as noted in HPI. All systems reviewed & are unremarkable except as noted in HPI and below PMFSH Past Medical History Medical History Anxiety JARET on CPAP Hypercholesterolemia HTN (hypertension) Overweight (BMI 25.0-29.9) Diabetes Surgical History Surgical History History of meniscectomy of right knee medial H/O vasectomy Family History Family History Father Diabetes mellitus Social History Social History Smoking status: Never smoker Alcohol intake: current Alcohol use details: VERY RARE Substance use: never Substance use type: does not use Lack of Transportation: No Lack of Food: Never True Current Housing: I Have Housing Concerned About Future Housing: No Difficulty Paying Gas/Electric Bills: No Difficulty Paying for Meds: No Currently Unemployed: No Education: Associate Degree Difficulty w/ Childcare or Family Care: No Living arrangements: with family Gender identity (if verbalized by the patient): Male Spiritual care concerns: No Exam Narrative: GENERAL: Well appearing, well-nourished, non-toxic, in no acute distress. HEAD: Normocephalic, atraumatic. RESPIRATORY: Airway patent, respirations nonlabored. Clear to auscultation bilaterally, no rales, rhonchi, wheezing. CARDIOVASCULAR: Regular rate and rhythm without murmurs, rubs, or gallops. ABDOMINAL: Soft, minimal discomfort throughout lower abdomen, nondistended. Normoactive BS. MUSCULOSKELETAL: Moves all extremities. No gross deformities. SKIN: Warm, dry, normal color. NEURO: A&O X3. Speech clear. PSYCHIATRIC: Appropriate mood and affect. Normal interaction. Course Vital Signs Vital signs: Vital Signs Temperature 97.8 F 06/25/25 13:47 Pulse Rate 72 06/25/25 13:47 Respiratory Rate 16 06/25/25 13:47 Blood Pressure 130/84 06/25/25 13:47 Pulse Oximetry 100 06/25/25 13:47 Temperature 97.8 F 06/25/25 13:47 Pulse Rate 72 06/25/25 13:47 Respiratory Rate 16 06/25/25 13:47 Blood Pressure 130/84 06/25/25 13:47 Pulse Oximetry 100 06/25/25 13:47 MDM - Abdominal Pain MDM Narrative Medical decision making narrative: Patient presented to ED with penile pain after urination. Began last night, persistent into this morning. Did have some discomfort throughout his lower abdomen which has improved. Denies history of kidney stones. Denies concern for STDs. Is in a monogamous relationship. Vital signs are stable upon arrival. Patient in no acute distress. Laboratory studies are fairly unremarkable. Kidney function normal. Lipase is elevated to 817, however patient w/o any upper abdominal/epigastric tenderness/N/V. Low suspicion for pancreatitis at this time. UA is clear. No signs of infection or hematuria. Did show 1+ ketones. Given fluids. CT scan of abdomen/pelvis was obtained and showing 5 mm right UVJ stone does also show a 1 mm nonobstructing left renal stone. Discussed the managing findings with patient. He is feeling improved with supportive therapy. Discussed continued management of kidney stone, will prescribe pain medicine, Flomax for home, advised to stay well hydrated. Will refer to Urology for further evaluation as needed. Given return precautions. Patient in agreement plan. Discharged in stable condition. Medical Records Attestation: I reviewed the patient's medical records. Lab Data Attestation: I reviewed the patient's lab results. 06/25/25 14:46 06/25/25 14:21 Labs: Lab Results 06/25/25 06/25/25 Range/Units 14:21 14:46 WBC 8.0 (4.5-10.0) K/mm3 RBC 5.26 (4.6-6.20) M/mm3 Hgb 16.0 (14.0-18.0) g/dL Hct 48.1 (42.0-52.0) % MCV 91.4 (80-100) fl MCH 30.4 (26-34) pg MCHC 33.3 (32-36) g/dl RDW 12.8 (11.5-14.5) % Plt Count 248 (150-375) k/mm3 MPV 9.4 (7.4-10.4) fl Immature Gran % (Auto) 0.4 (0-0.5) % Neut % (Auto) 66.3 (45.5-73.1) % Lymph % (Auto) 23.0 (18.3-44.2) % [place] % (Auto) 8.7 H (2.6-8.5) % Eos % (Auto) 1.2 (0-4.4) % Baso % (Auto) 0.4 (0.2-1.2) % Lymph # (Auto) 1.84 (0.9-3.2) K/mm3 [place] # (Auto) 0.7 H (0.1-0.6) K/mm3 Eos # (Auto) 0.1 (0-0.3) K/mm3 Baso # (Auto) 0.0 (0.0-0.1) K/mm3 Abs Immat Gran (auto) 0.03 (0.00-0.031) K/mm3 Absolute Neuts (auto) 5.3 (1.3-6.7) K/mm3 Absolute Nucleated RBC 0.000 (0.0-0.012) K/mm3 Nucleated RBC % 0.0 (0.0-0.2) % Sodium 134 L (137-145) mmol/L Potassium 4.4 (3.4-5.0) mmol/L Chloride 103 (98-107) mmol/L Carbon Dioxide 21 L (22-30) mmol/L Anion Gap 10 (4-12) mmol/L BUN 31 H (9-20) mg/dL Creatinine 1.04 (0.7-1.3) mg/dL Estim Creat Clear Calc 84 ml/min Estimated GFR > 60 (59 - ) Glucose 136 H (65-110) mg/dL Calcium 9.0 (8.4-10.2) mg/dL Total Bilirubin 0.7 (0.2-1.3) mg/dL AST 34 (17-59) U/L ALT 36 (6-50) U/L Alkaline Phosphatase 58 (38-126) U/L Total Protein 7.2 (6.3-8.2) g/dL Albumin 4.3 (3.5-5.1) g/dL Lipase 817 H (23-300) U/L Urine Color Yellow (Yellow) Urine Appearance Clear (Clear) Urine pH 5.5 (5.0-9.0) Ur Specific [place] 1.032 (1.001-1.035) Urine Protein Negative (Negative) mg/dL Urine Glucose (UA) Negative (Negative) mg/dL Urine Ketones 1+ H (Negative) mg/dL Ur Blood (Man) Negative (Negative) Urine Nitrate Negative (Negative) Urine Bilirubin Negative (Negative) Urine Urobilinogen 0.2 (<2.0) mg/dL Leukocyte Esterase Rfl Negative (Negative) ENID/UL Imaging Data Attestation: I personally reviewed and interpreted this imaging study as follows: Radiologist's impression: ITS Impressions Abdomen/Pelvis CT 06/25/25 15:36 IMPRESSION: 1. 5 mm stone at right ureterovesicular junction. No hydronephrosis. 2. 1 mm nonobstructing left kidney stone. Discharge Plan Discharge Clinical Impression: Calculus of distal right ureter, Dysuria Patient Disposition: Home Condition: Stable Instructions: Antibiotic Form, Kidney Stones (ED) Additional Instructions: Take Flomax daily as prescribed. Continue Tylenol and Ibuprofen as needed for pain. [place] as needed for more severe pain. Stay well hydrated. Strain urine to collect stone. Follow-up with your primary care doctor and/or Urology for further evaluation if needed. Return to the ED if you experience worsening or severe pain, unable to keep down food/drink, fevers, uncontrollable nausea/vomiting, unable to urinate, severe blood in urine, or any other symptoms of concern. Your lipase (pancreatic enzyme) was elevated today. Follow up with your primary care doctor for repeat laboratory testing. Patient Language: Maltese Prescriptions: New hydrocodone-acetaminophen 5-325 mg tablet 1 tablet PO Q6H PRN (Reason: pain) Qty: 15 0RF tamsulosin [Flomax] 0.4 mg capsule 0.4 mg PO DAILY Qty: 7 0RF No Action atorvastatin 10 mg tablet 10 mg PO DAILY bupropion HCl 150 mg tablet extended release 24 hr 150 mg PO QAM naproxen 500 mg tablet 500 mg PO BID Qty: 120 0RF Patient Comments: PT TAKES PRN insulin glargine [Lantus U-100 Insulin] 100 unit/mL Solution 15 unit SUBCUT HS glimepiride 2 mg Tablet 2 mg PO DAILY metformin 1,000 mg Tablet 1,000 mg PO BID lisinopril 10 mg Tablet 10 mg PO DAILY Victoza 3-Hitesh 0.6 mg/0.1 mL (18 mg/3 mL) Pen Injector 1.8 mg SUBCUT WEEKLY Patient Comments: PT TAKES ON TUESDAY hydrocodone-acetaminophen 5-325 mg tablet 1 - 2 tablet PO Q4-6H MDD 6 PRN (Reason: pain) Qty: 30 0RF hydrocodone-acetaminophen 5-325 mg tablet 1 tablet PO Q8H PRN (Reason: pain) Qty: 14 0RF ondansetron 4 mg tablet,disintegrating 4 mg PO Q8H PRN (Reason: nausea and vomiting) Qty: 10 0RF moxifloxacin 0.5 % drops 1 drp LEFT EYE TID 4 Days Qty: 3 0RF Follow-up/Referrals: Orlin Kent MD [Physician, Urology] Referral Note: UROLOGY UNKNOWN,DOCTOR [Primary Care Provider] Time of Disposition: 17:31
[2025-06-25] MEDS: ONDANSETRON INJ 4 MG/2 ML VIAL IV PUSH (15:29)
[2025-06-25] MEDS: MORPHINE SULFATE (*CRX) 4 MG/ML INJ IV PUSH (15:30)
[2025-06-25] MEDS: SODIUM CHLORIDE 0.9% IV 1,000 ML 999 ML IV CONT (15:34)
[2025-06-25 15:46] LABS: Anion Gap 10 mmol/L (4-12); Chloride 103 mmol/L (98-107)
--- OUTSIDE RECORDS SUMMARY | 2025-06-25 16:00 | XMS_ITS | Encounter Summary ---
Author Organization [facility] Healthcare Address [address] [place] [id number] Care Team Providers Care Chief Of Safety And Protection Name Role Phone Dayne Acosta MD Primary Care Provider + Reason for Visit * Reason Onset Date Comments Abdominal Pain 06/25/2025 penis symptoms 06/25/2025 Encounter Details Date Type Department Care Team (Late st Contact Info) Description 06/25/2025 Nurse Triage [facility] Medical Group Primary Care at [address] [place] [address] Dayne Acosta MD [address] [place] [address] [address] [place] [address] Social History Tobacco Use Types [...] on file Legal Sex Male 2:27 PM RRTS Gender Identity Not on file Sexual Orientation [...] 2 hours Protocols Used Abdominal Pain - Tpra-Gvdem-GJ Penis and Scrotum Nmmeolta-Luekr-II * Telephone Encounter - Mary Jarvis RN [...] on filedocumented in this encounter Care Teams Chief Of Safety And Protection Relationship Specialty Start Date End Date Dayne Acosta MD [address] [address] PCP - General Family Medicine 02/20/25 documented as of this encounter
--- OUTSIDE RECORDS SUMMARY | 2025-06-25 16:00 | XMS_ITS | Clinical Summary ---
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 There is no laboratory evidence of HCV infection. In most cases, no further action is required. However, if recent HCV exposure is suspected, a test for HCV RNA (test code 56630) is suggested. For additional information please refer to http://education.[facility]/faq/EUE07i4 (This link is being provided for informational/ educational purposes only.) Blood 02/01/2025 7:14 AM CDT 02/01/2025 7:15 AM CDT Bridgette Leonard MD LAB MICROBIOLOGY - GENERAL ORDERABLES Final Result Performing Organization Address [facility] de Phone Number [facility] [address] [place] [address] * Albumin Creatinine Ratio, Urine (02/01/2025 7:14 [...] ORDERABLE S Final Result Performing Organization Address [facility] de Phone Number [facility] [address] [place] [address] * (ABNORMAL) Hemoglobin A1c (02/01/2025 7:14 AM CDT) Hgb A1C 6.3(H) <5.7 % of total Hgb [id number] Comment: For someone without known diabetes, [...] LAB BLOOD ORDERABLE S Final Result [facility] [address] [place] [address] * Lipid panel (02/01/2025 7:14 AM CDT) [...] LDL-C. Tariq WEBB et al. JEWEL. 2013;310(19): 3077-8130 (http://education.FClub.Pay4later/faq/DKD664) Chol/HDL ratio 3.1 <5.0 (calc) [facility] [...] LAB BLOOD ORDERABLE S Final Result [facility] [address] [facility] [place] [address] * (ABNORMAL) Comprehensive metabolic panel (02/01/2025 7:14 [...] BLOOD ORDERABLE S Final Result [facility] [address] [address] * Colonoscopy (08/31/2024 8:48 AM CONTINUOUS LINTER DRIER OPERATOR) Anatomical Region Laterality Modality Other Narrative Procedure Note Duane Gaona MD - 08/31/2024 8:48 AM CST [facility] Patient Name: Juan Guillen Procedure Date: 08/31/2024 8:48 AM Date of : 1975 Admit Type: Outpatient Age: 49 Gender: Male Attending MD: Duane Gaona M.D. Room: [facility]COPY ROOM 1 Note Status: Finalized Patient [...] under direct vision. The Pediatric Colonoscope PCF-H190L [id number] was introducedthrough the anus and advanced to [...] 8:48 AM Procedure Code(s): --- Professional --- 19855, Colonoscopy, flexible; with removal of tumor(s), polyp(s), or other lesion(s) by snare technique Diagnosis Code(s): --- Professional --- Z12.11, Encounter for screening for malignant neoplasm of colon D12.4, Benign neoplasm of descending colon CPT copyright 2020 [employer]. All rights reserved. The codes documented in this report are preliminary and upon basin cleaner reviewmay be revised to meet current compliance requirements. Recognized by the [place] [employer] for promoting quality in endoscopy Duane Gaona MD ENDOSCOPY PROCEDURES Final Result from Last 3 Months or Most Recently Relevant to Health Maintenance Insurance [employer] [facility] CHOICE [facility] H[facility]/PPO Address: [address] [address] [place] [address] Advance Directives For more information, please contact: [phone] * Full Code (Latest Code Status on File) Date Activated Date Inactivated Comments 08/31/2024 8:19 AM 08/31/2024 3:04 PM * Full Code Date Activated Date Inactivated Comments 08/31/2024 8:19 AM 08/31/2024 8:19 AM Care Teams Needle Setter Relationship Specialty Start Date End Date Dayne Acsota MD [address] [facility] [address] [place] [address] PCP - General Family Medicine 02/20/25
[2025-06-25] MEDS: KETOROLAC 30 MG/ML VIAL (*BKC) IV PUSH (16:24)
[2025-06-25] MEDS: TAMSULOSIN HCL 0.4 MG CAPSULE PO (16:24)
== END 2025-06-25 17:42 | disposition home or self-care (01) ==
PROVIDERS: Family Medicine; Emergency Provider Physician Assistant
DX: N20.2 Calculus of kidney with calculus of ureter (principal); R30.0 Dysuria; I10 Essential (primary) hypertension; E78.00 Pure hypercholesterolemia, unspecified; E11.9 Type 2 diabetes mellitus without complications; G47.33 Obstructive sleep apnea (adult) (pediatric); Z79.4 Long term (current) use of insulin; Z79.85 Long-term (current) use of injectable non-insulin antidiabetic drugs; Z79.84 Long term (current) use of oral hypoglycemic drugs; Z79.899 Other long term (current) drug therapy
CPT/HCPCS: 36415; 74176; 80053; 81003; 83690; 85025; 96361; 96374; 96375; 99284; A9270; J1885; J2270; J2405; J7030